=== PATIENT | male | born 1940 | race Caucasian/White ===

== ENCOUNTER → 2017-09-29 15:23 | Outpatient (CLI) | payer MEDICARE | END | disposition home or self-care (01) | LOC: D.US 15:23 | DX: M79.661 Pain in right lower leg (principal); R60.0 Localized edema ==

== ENCOUNTER → 2017-10-12 07:24 | Outpatient (CLI) | payer MEDICARE | END | disposition home or self-care (01) | LOC: D.MRI 07:24 | DX: M54.16 Radiculopathy, lumbar region (principal); M25.551 Pain in right hip ==

== ENCOUNTER 2017-10-25 06:35 | Day surgery (SDC) | payer MEDICARE ==
[2017-10-24 08:56] LABS: HEMATOCRIT 42.1 % (42.0-54.0); HEMOGLOBIN 14.6 g/dL (13.5-17.5); MCH 30.3 pg (26.0-34.0); MCHC 34.7 g/dL (31.0-37.0); MCV 87.3 fL (80.0-100.0); RBC 4.82 10x6/uL (4.20-6.10); RDW 12.7 % (11.5-14.5); WBC 6.1 10x3/uL (4.8-10.8)
[~2017-10-25] VITALS: Ht 175.3 cm; Wt 81.2 kg
--- NOTE | ~2017-10-25 | OP ---
PATIENT NAME: MIGUELITO YUN MEDICAL RECORD: [id number] :40 LOCATION:D.OPS ADMISSION DATE: SURGEON: MICHELE TANG MD DATE OF OPERATION: 10/25/2017 SURGEON: Michele Tang MD PREOPERATIVE DIAGNOSES: 1. Right inguinal lymphadenopathy. 2. History of malignant melanoma. POSTOPERATIVE DIAGNOSES: 1. Right inguinal lymphadenopathy. 2. History of malignant melanoma. PROCEDURE PERFORMED: Excisional biopsy of right inguinal lymph node times 2. ANESTHESIA: General. COMPLICATIONS: None. SPECIMENS: Inguinal lymph nodes times 2. Case was clean. OPERATIVE COURSE: After consent was obtained, the patient was taken to the operating room and placed in the supine position on the operating table. General anesthesia was given via endotracheal intubation. Thereafter, a timeout was performed to confirm the correct patient and procedure. The right groin was prepped and draped in typical sterile fashion. Lymph node 1 was palpable above the inguinal crease. Local anesthetic was administered. A small transverse incision was made. Dissection was performed with electrocautery. The node was identified and grasped with an Allis clamp, it was circumferentially dissected using both clip director process engineering and electrocautery. Once it was circumferentially dissected, it was removed and sent for permanent pathology. The wound was closed in 2 layers. The subcutaneous tissue was closed with 3-0 Vicryl suture. The skin was closed with 4-0 Stratafix, Mastisol, and Steri-Strips. The second lymph node was just below the inguinal crease, again it was palpable. Local anesthetic was injected. A small transverse incision was made. Dissection continued through the subcutaneous tissue and the node was identified. It was grasped with an Allis clamp, it was circumferentially dissected using clip director process engineering and electrocautery. Once circumferentially dissected, it was excised and sent for permanent pathology. The wound was copiously irrigated and suctioned. Hemostasis was obtained with clip director process engineering and electrocautery. The subcutaneous tissue was closed with a 3-0 Vicryl suture. The skin was closed with 4-0 Stratafix, Mastisol and Steri-Strips. At the end of the case, all needle and instrument counts were correct. No complications occurred. The patient was extubated and transferred to the PACU in stable condition. TRANSINT:[id number] Voice Confirmation ID: [id number] DOCUMENT ID: [id number] OPERATIVE REPORT [id number] MIGUELITO YUN,MICHELE Flynn MD at 1206 CC: [id number] DICTATION DATE: 10/25/17 1008 HEARING AID DISPENSER: 10/25/17 1200 REG [place] [id number] [place] [id number]
[~2017-10-25 06:35] MED LIST: ASPIRIN EC81 M1 PO; CO Q-10200 MG PO; FLAXSEED OIL1000 MG PO; FLOMAX0.4 MG PO; HYDROCODON-ACE1 EAC7 PO; ISOSORBIDE MONO30 M1 PO; LISINOPRIL5 MG PO; NEURONTIN 300300 MG PO; NEXIUM20 MG PO; NORVASC5 MG PO; PLAVIX75 MG PO; TUMERIC PO; VITAMIN B-121000 MCG PO; VITAMIN D31000 UNIT PO; VITAMIN E100 UNIT PO; ZETIA10 MG PO
[2017-10-25 08:07] VITALS: Ht 175.3 cm; Wt 81.2 kg
[2017-10-25] MEDS ORDERED: HYDROCODON-ACE1 EAC7 PO (10:03)
[2017-10-25] MEDS ORDERED: BACTRIM DS TABL1 TAB PO (10:04)
== END 2017-10-25 13:00 | disposition home or self-care (01) ==
LOC: D.OPS 06:35 → D.PAN 09:00 → D.OPS 13:00
PROVIDERS: Anesthesiology
DX: I88.8 Other nonspecific lymphadenitis (principal); Z85.820 Personal history of malignant melanoma of skin; Z01.812 Encounter for preprocedural laboratory examination